=== PATIENT | female | born 1970 | race Hispanic/Latino ===

== ENCOUNTER → 2018-10-24 | Outpatient (CLI) | payer OTHER ==
--- NOTE | 2018-10-24 10:29 | Diagnostic Imaging Report ---
EXAMINATION: SHOULDER LEFT COMPLETE INDICATION: Left shoulder pain COMPARISON: None FINDINGS: Internal and external rotation views of the left shoulder demonstrate no acute fracture or dislocation. Alignment is anatomic. The soft tissues appear unremarkable. No displaced rib fracture. The visualized portions of the left lung appear clear. IMPRESSION: No acute osseous injury. Signed by: Jeremiah Benito MD on 10/24/2018 10:25 AM
== END ==
LOC: RAD 09:20
PROVIDERS: ATTEND Family Medicine
DX: M25.512 Pain in left shoulder (principal)

== ENCOUNTER → 2018-12-11 | Outpatient (CLI) | payer OTHER ==
--- NOTE | 2018-12-11 17:34 | Diagnostic Imaging Report ---
EXAM: KNEE RIGHT THREE VIEWS DATE: 12/11/2018 5:00 PM INDICATION: ^[id number] ^[id number] ^RT KNEE PAIN COMPARISON: None FINDINGS: 3 views of the right knee show no displaced fracture or dislocation. Joint spaces are maintained. There is mild tricompartmental degenerative change. Soft tissues unremarkable. IMPRESSION: No acute bony abnormality. Signed by: Dr. Heath Santos M.D. on 12/11/2018 5:30 PM
== END ==
LOC: RAD 16:48
PROVIDERS: ATTEND Family Medicine
DX: M25.561 Pain in right knee (principal)

== ENCOUNTER → 2021-02-11 | Outpatient (CLI) | payer BC | LOC: RAD 09:50 | PROVIDERS: ATTEND Family Medicine | DX: M79.672 Pain in left foot (principal) ==

== ENCOUNTER → 2021-04-09 | Day surgery (SDC) | payer BC ==
[2021-04-06 16:03] LABS: BASOPHILS % 0.3 % (0.0-1.0); EOSINOPHILS # (AUTO) 0.1 (0.0-0.4); EOSINOPHILS % 1.2 % (0.0-6.0); HEMATOCRIT 34.2 % (34.2-44.1); HEMOGLOBIN 10.6 g/dL (12.0-16.0); LYMPHOCYTES # (AUTO) 2.6 (1.0-3.2); LYMPHOCYTES % 29.5 % (18.0-39.1); MEAN CORPUSCULAR HEMOGLOBIN 24.8 pg (28-32); MEAN CORPUSCULAR VOLUME 80.1 fL (81-99); MONOCYTES # (AUTO) 0.5 (0.2-0.8); MONOCYTES % 6.1 % (4.4-11.3); NEUTROPHILS # (AUTO) 5.4 (2.1-6.9); NEUTROPHILS % 62.6 % (38.7-80.0); PLATELET COUNT 279 x10e3/uL (140-360); RED BLOOD COUNT 4.27 x10e6/uL (3.6-5.1); RED CELL DISTRIBUTION WIDTH 14.3 % (11.7-14.4)
[2021-04-06 16:13] LABS: INR 1.05; PROTHROMBIN TIME 14.4 seconds (11.9-14.5)
[2021-04-06 16:14] LABS: PARTIAL THROMBOPLASTIN TIME 29.1 seconds (23.8-35.5)
[2021-04-06 16:22] LABS: ALBUMIN 3.8 g/dL (3.5-5.0); ANION GAP 9.9 mmol/L (8-16); CREATININE, SERUM 0.62 mg/dL (0.57-1.11); POTASSIUM 3.9 mmol/L (3.5-5.1)
[~2021-04-09] VITALS: Ht 157.5 cm; Wt 85.3 kg
[2021-04-09] VITALS (12 sets, daily range): BP systolic 114–135; BP diastolic 50–85
[~2021-04-09] MED LIST: ASPIRIN 325 MG TAB ONE; ASPIRIN81 MG PO; BENICAR20 MG PO; CRESTOR10 MG PO; FENTANYL CITRATE/PF 100MCG/2 ML INJ ONE; GLIPIZIDE5 MG PO; HEPARIN SOD/SOD CHLORIDE 2,000 ML ONE; IBUPROFEN200 MG PO; IOPAMIDOL 370 MG/ML 200 ML INFUS..BTL INJ ONE; LIDOCAINE HCL 2% LOCAL 20 ML VIAL ONE; METFORMIN HCL500 MG PO; METOPROLOL SUCC25 MG PO; MIDAZOLAM HCL 2 MG/2 ML VIAL ONE; SODIUM CHLORIDE 0.9% 1000ML 1,000 ML ONE; VERAPAMIL HCL 2.5 MG/ML 2 ML VIAL ONE
== END | disposition home or self-care (01) ==
LOC: CATH LAB 08:00
PROVIDERS: ATTEND Internal Medicine Cardiovascular Disease
DX: R07.9 Chest pain, unspecified (principal); R94.39 Abnormal result of other cardiovascular function study; R06.02 Shortness of breath; Z01.812 Encounter for preprocedural laboratory examination; Z20.822 Contact with and (suspected) exposure to COVID-19; Z79.82 Long term (current) use of aspirin; Z79.84 Long term (current) use of oral hypoglycemic drugs
CPT/HCPCS: 36415; 80053; 80061; 85025; 85610; 85730; 93458; C1887; J2001; J2250; J3010; J7030; Q9967; U0002; 99152

== ENCOUNTER → 2021-06-15 | Outpatient (CLI) | payer BC ==
[~2021-06-15] MED LIST changes: -ASPIRIN 325 MG TAB ONE; -FENTANYL CITRATE/PF 100MCG/2 ML INJ ONE; -HEPARIN SOD/SOD CHLORIDE 2,000 ML ONE; -IOPAMIDOL 370 MG/ML 200 ML INFUS..BTL INJ ONE; -LIDOCAINE HCL 2% LOCAL 20 ML VIAL ONE; -MIDAZOLAM HCL 2 MG/2 ML VIAL ONE; -SODIUM CHLORIDE 0.9% 1000ML 1,000 ML ONE; -VERAPAMIL HCL 2.5 MG/ML 2 ML VIAL ONE
== END ==
LOC: RAD 09:54
PROVIDERS: ATTEND Family Medicine
DX: M25.511 Pain in right shoulder (principal); M77.8 Other enthesopathies, not elsewhere classified